=== PATIENT | male | born 1975 | race Caucasian/White ===

== ENCOUNTER 2019-09-07 18:18 | Emergency (ER) | payer OTHER, SELFPAY ==
[2019-09-07 18:24] VITALS: BP 135/85; PULSE 80; RESP 16; TEMP 36.7; O2SAT 98
--- NOTE | 2019-09-07 18:28 | ED.WOUNDLAC ---
HPI - Wound/Laceration General Chief Complaint: Wound/Laceration Stated Complaint: thumb lac Time Seen by Provider: 09/07/19 18:28 Source: patient Mode of arrival: ambulatory Limitations: no limitations History of Present Illness HPI narrative: Haseeb Travis is a 43 yo male with no PMH who comes to express care with a 3cm linear lac at the base of L thumb that occurred POA with razor knife. Movement intact Related Data Home Medications Medication Instructions Recorded Confirmed No Home Medications 09/07/19 09/07/19 Allergies Allergy/AdvReac Type Severity Reaction Status Date / Time Penicillins Allergy Unknown unknown Verified 09/07/19 18:38 Review of Systems Review of Systems: Narrative: CONSTITUTIONAL: Denies fever, chills, sweats. EYES: Denies visual changes, redness, discharge. ENT: Denies rhinorrhea, congestion, sore throat, otalgia. CARDIOVASCULAR: Denies chest pain, palpitations, edema. RESPIRATORY: Denies dyspnea, wheezing, cough GASTROINTESTINAL: Denies abdominal pain, nausea, vomiting, diarrhea. GENITOURINARY: Denies dysuria, hematuria, abnormal discharge SKIN: Denies rash or itching. 3 to 3-1/2 cm linear laceration to base right NEUROLOGIC: Denies numbness, or focal weakness. PSYCHIATRIC: Denies anxiety or depression. [facility] Surgical History Surgical History History of neck surgery 2019 Family History Family History Other No active medical problems Social History Social History Smoking status: Current every day smoker Tobacco type: cigarettes Substance use: never Comments At time of signature, I agree with nursing past medical, surgical, social and family history. There is no relevant family history pertinent to the presenting complaint. Exam Narrative: Exam Narrative: GENERAL: This is a well-nourished, well-developed patient, in mild distress. HEAD: normocephalic, atraumatic. EYES: PERRL. Sclera clear/white. Vision is grossly intact. EARS: External ears normal, auditory canals clear and without drainage, TMs normal without perforation. Hearing grossly intact. NOSE: External nose normal without nasal discharge, nares without redness, no rhinorrhea. THROAT: Mucous membranes moist, NECK: Neck supple, CARDIOVASCULAR: Regular rate and rhythm without murmurs, gallops, or rubs. RESPIRATORY: Clear to auscultation. Breath sounds equal bilaterally. No wheezes, rales, or rhonchi. GASTROINTESTINAL: Abdomen soft, SKIN: warm, intact with no suspicious lesions or rash, good texture and turgor.Laceration base L thumb about 3-3,5 cm, controlled bleeding NEURO: awake, alert, and oriented to person, place and time. There were no obvious focal neurologic abnormalities. Steady gait EXTREMITIES: Normal range of motion. BACK: Nontender without deformity Course Course Emergency Course: Lack repair does not require tetanus update Vital Signs Vital signs: Vital Signs Temperature 98.0 F 09/07/19 18:24 Pulse Rate 80 09/07/19 18:24 Respiratory Rate 16 09/07/19 18:24 Blood Pressure 135/85 09/07/19 18:24 Pulse Oximetry 98 09/07/19 18:24 Temperature 98.0 F 09/07/19 18:24 Pulse Rate 80 09/07/19 18:24 Respiratory Rate 16 09/07/19 18:24 Blood Pressure 135/85 09/07/19 18:24 Pulse Oximetry 98 09/07/19 18:24 Procedures Laceration Laceration 1: Date: 09/07/19 Time: 18:55 Site: hand Side (If applicable): left Size (cm): 3.5 Description: linear Local Anesthetic: lidocaine 1% Amount of anesthesia used (mL): 5 Pre-repair: irrigated ====== Skin Level ====== Skin layer closed with: vicryl Size (cm): 4-0 Number of sutures: 7 Technique: simple, interrupted ====== Subcutaneous Layer ====== ====== Muscle
== END 2019-09-07 19:20 | disposition home or self-care (01) ==
PROVIDERS: Emergency Provider Nurse Practitioner
DX: S61.412A Laceration without foreign body of left hand, initial encounter (principal); W26.0XXA Contact with knife, initial encounter; F17.210 Nicotine dependence, cigarettes, uncomplicated
CPT/HCPCS: 12002; 99212; G0463